=== PATIENT | male | born 1990 | race American Indian/Alaskan Native ===

== ENCOUNTER 2017-11-16 18:51 | Inpatient (IN) | payer OTHER ==
[2017-11-16] MEDS ORDERED: AMIDATE IV ONE (19:04)
[2017-11-16] MEDS ORDERED: ARTIFICIAL TEARS OPHTH OINT OU PRN (19:05)
[2017-11-16] MEDS ORDERED: VASELINE LIP THERAPY TP PRN (19:05)
[2017-11-16] MEDS ORDERED: ATROPINE IV ONE (19:09)
[2017-11-16] MEDS ORDERED: NACL 0.9% 1000 ML 1,000 ML IV ONE (19:14)
[2017-11-16] MEDS ORDERED: VERSED IV ONE (19:15)
--- NOTE | 2017-11-16 19:23 | Emergency Department Report ---
HPI - General Chief Complaint: Overdose Time Seen by Provider: 11/16/17 19:13 - HPI HPI: Patient presented via EMS, unresponsive, with nasal L Way after failed intubation by EMS 1. Apparently patient did unknown amount of illicit drug prior to him becoming unresponsive. Patient was in the front of a truck, then fell outside unresponsive. He was brought via stretcher, spine board. Unable to participate in history and physical. GCS was found to be 4, no focal degenerative intubated for airway protection. Etomidate 20 mg IV 1 given prior to his intubation. ED Past Medical Hx - Past Medical History Additional medical history: unknown - Surgical History Additional Surgical History: unknown - Social History Smoking Status: Unknown if ever smoked ED Review of Systems ROS: Stated complaint: OVERDOSE Other details as noted in HPI Comment: Unobtainable due to pts medical conditions Physical Exam - Physical Exam Vital Signs: Vital Signs 11/16/17 11/16/17 18:56 19:00 Pulse Rate 42 L 53 L Respiratory 9 L 16 Rate Blood Pressure 118/76 127/81 O2 Sat by Pulse 99 87 Oximetry Physical Exam: - Physical Exam - General Limitations: Unresponsive patient General appearance: Not responsive to pain stimuli, verbal stimuli. - Head Head exam: Present: Right frontal head abrasion. Normocephalic - Eye Eye exam: Present: Pinpoint pupils bilaterally - ENT ENT exam: Present: Nasal airway in place - Neck Neck exam: Present: normal inspection, no crepitus - Respiratory Respiratory exam: Present: Decreased breath sound bilaterally,. Having periods of apnea and respiratory rate at best 6-8, course breath sound and lower lobes. - Cardiovascular Cardiovascular Exam: Present: Sinus bradycardia from 36-44. Absent: systolic murmur, diastolic murmur, rubs, gallop - GI/Abdominal GI/Abdominal exam: Present: soft, normal bowel sounds - Extremities Exam Extremities exam: Present: normal inspection - Back Exam Back exam: Present: normal inspection - Neurological Exam Neurological exam: GCS of 4, has abnormal extension - Skin Skin exam: Present: warm, dry, intact, normal color. Absent: rash ED Course Vital Signs 11/16/17 11/16/17 18:56 19:00 Pulse Rate 42 L 53 L Respiratory 9 L 16 Rate Blood Pressure 118/76 127/81 O2 Sat by Pulse 99 87 Oximetry - Reevaluation(s) Reevaluation #1: 11/16/17 23:41 While nurse decrease propranolol due to hypotension, patient self extubated, had coughing spells, and remained stable. Saturation was 100% on nasal cannula , patient was unresponsive to tactile, verbal stimuli therefore he remained extubated on nasal cannula. ED Medical Decision Making - Lab Data Result diagrams: 11/16/17 Unknown 11/16/17 Unknown Critical care attestation.: If time is entered above; I have spent that time in minutes in the direct care of this critically ill patient, excluding procedure time. ED Disposition Clinical Impression: Acute drug overdose Qualifiers: Encounter type: initial encounter Injury intent: undetermined intent Qualified Code(s): T50.904A - Poisoning by unspecified drugs, medicaments and biological substances, undetermined, initial encounter Disposition: DC-09 OP ADMIT IP TO THIS HOSP Is pt being admited?: Yes Condition: Stable
[2017-11-16 19:34] LABS: Basophils % (Auto) 0.1 % (0.0-1.8); Hematocrit 43.5 % (35.5-45.6); Hemoglobin 14.2 gm/dl (11.8-15.2); Lymphocytes # (Auto) 1.3 K/mm3 (1.2-5.4); Lymphocytes % (Auto) 8.9 % (13.4-35.0); Mean Corpuscular HGB Conc 33 % (32-34); Mean Corpuscular Hemoglobin 31 pg (28-32); Mean Corpuscular Volume 93 fl (84-94); Monocytes # (Auto) 0.9 K/mm3 (0.0-0.8); Monocytes % (Auto) 5.8 % (0.0-7.3); Platelet Count 250 K/mm3 (140-440); Red Blood Count 4.65 M/mm3 (3.65-5.03); Red Cell Distribution Width 13.8 % (13.2-15.2)
[2017-11-16 19:53] LABS: Alanine Aminotransferase 258 units/L (7-56); Albumin 4.9 g/dL (3.9-5); BUN/Creatinine Ratio 15; Blood Urea Nitrogen 9 mg/dL (9-20); Hemolysis Index 50
--- NOTE | 2017-11-16 19:56 | XRay Report ---
FINAL REPORT EXAM: XR CHEST 1V AP HISTORY: ETT placement TECHNIQUE: AP portable view of the chest. PRIORS: None. FINDINGS: There is an endotracheal tube in place which appears adequately positioned in the mid trachea. The cardiomediastinal silhouette appears normal. The lungs are clear. The bones and soft tissues are unremarkable. IMPRESSION: No evidence of acute cardiopulmonary disease.
[2017-11-16] MEDS ORDERED: VERSED IV NR (20:00)
[2017-11-16] MEDS ORDERED: NACL 0.9% 500 ML IV SCH (20:00)
[2017-11-16] MEDS ORDERED: DIPRIVAN 10 MG/ML 1,000 MG/100 ML BOTTLE IV SCH (20:00)
[2017-11-16 21:19] LABS: Bilirubin,Urine NEG (Negative); Blood,Urine NEG (Negative); Color,Urine Straw (Yellow); Mucus,Urine FEW /HPF; Urobilinogen,Urine < 2.0 mg/dL (<2.0)
[2017-11-16 21:21] LABS: WBC,Urine < 1.0 /HPF (0.0-6.0)
[2017-11-16 21:27] LABS: Amphetamine Screen,Urine PRESUMPTIVE NEGATIVE; Cannabinoid Screen,Urine PRESUMPTIVE NEGATIVE; Cocaine Screen,Urine PRESUMPTIVE NEGATIVE; Methadone Screen,Urine PRESUMPTIVE NEGATIVE; Opiate Screen,Urine PRESUMPTIVE NEGATIVE
[2017-11-16 21:38] LABS: Benzodiazepines Screen,Urine PRESUMPTIVE POSITIVE
--- NOTE | 2017-11-17 01:04 | Cat Scan Report ---
FINAL REPORT PROCEDURE: CT HEAD/BRAIN WO CON TECHNIQUE: Computerized tomography of the head was performed without contrast material. HISTORY: altered mental status COMPARISON: No prior studies are available for comparison. FINDINGS: Skull and scalp: Normal. Paranasal sinuses: Normal. Ventricles and subarachnoid spaces: Normal. Cerebrum: No evidence of hemorrhage, acute infarction or mass . Cerebellum and brainstem: No evidence of hemorrhage, acute infarction or mass. Vasculature: Normal. Comments: None. IMPRESSION: Normal Examination
--- NOTE | 2017-11-17 01:12 | Cat Scan Report ---
FINAL REPORT PROCEDURE: CT CERVICAL SPINE WO CON TECHNIQUE: Computerized tomography of the cervical spine was performed from the skull base to T1 without contrast material. HISTORY: trama, fall COMPARISON: No prior studies are available for comparison. FINDINGS: Cervical vertebrae are intact. There are no fractures or malalignments. Disc spaces are normal. Facet joints are intact. Prevertebral soft tissues are normal in thickness. IMPRESSION: No significant abnormality.
--- NOTE | 2017-11-17 02:20 | History and Physical Report ---
History of Present Illness Date of examination: 11/16/17 Date of admission: 11/16/17 22:04 Chief complaint: Chief complaint: Altered sensorium History of present illness: HPI Patient presented via EMS, unresponsive, with nasal L Way after failed intubation by EMS 1. Apparently patient did unknown amount of illicit drug prior to him becoming unresponsive. Patient was in the front of a truck, then fell outside unresponsive. He was brought via stretcher, spine board. Unable to participate in history and physical. GCS was found to be 4, no focal degenerative intubated for airway protection. Etomidate 20 mg IV 1 given prior to his intubation. There is a fourth episode of overdose on GHB -Gamma hydroxy butyric acid Past Medical History Additional medical history: unknown -Surgical History Additional Surgical History: unknown -Social History Smoking Status: Unknown if ever smoked Drugs on a regular basis elen G Family history Htn Review of Systems ROS: Stated complaint: OVERDOSE Other details as noted in HPI Comment: Unobtainable due to pts medical conditions Medications and Allergies Allergies Allergy/AdvReac Type Severity Reaction Status Date / Time No Known Allergies Allergy Unverified 11/16/17 19:53 Home Medications Medication Instructions Recorded Confirmed Last Taken Type Mirtazapine [Remeron] 45 mg PO QHS 11/17/17 11/17/17 11/15/17 History Prazosin [Minipress] 5 mg PO QPM 11/17/17 11/17/17 Unknown History Active Meds: Active Medications Hydrophilic Ointment (Vaseline Lip Therapy) 1 applic TP Q2HR PRN PRN Reason: Dry Lips Multi-Ingred Cream/Lotion/Oil/Oint (Artificial Tears Ophth Oint) 1 applic OU Q4HR PRN PRN Reason: Dry Eye(s) Sodium Chloride (Nacl 0.9% 500 Ml) 1 ml IV DIRECT GWEN Exam - Physical Exam Narrative exam: Lying in bed comfortably - Constitutional Vitals: Temp Pulse Resp BP Pulse Ox 98.2 F 82 20 118/71 93 11/17/17 00:26 11/17/17 00:26 11/17/17 00:26 11/17/17 00:26 11/17/17 00:26 General appearance: Present: no acute distress, well-nourished - EENT Eyes: Present: PERRL ENT: hearing intact, clear oral mucosa - Neck Neck: Present: supple, normal ROM - Respiratory Respiratory effort: normal Respiratory: bilateral: CTA - Cardiovascular Heart rate: 80 Rhythm: regular Heart Sounds: Present: S1 & S2. Absent: rub, click - Extremities Extremities: no ischemia, pulses intact, pulses symmetrical, No edema Peripheral Pulses: within normal limits - Abdominal General gastrointestinal: Present: soft, non-tender, non-distended, normal bowel sounds Male genitourinary: Present: normal - Integumentary Integumentary: Present: clear, warm, dry - Musculoskeletal Musculoskeletal: gait normal, strength equal bilaterally - Psychiatric Psychiatric: appropriate mood/affect, intact judgment & insight - Neurologic Neurologic: CNII-XII intact, moves all extremities - Allied Health Allied health notes reviewed: nursing, case management Results - Labs CBC & Chem 7: 11/16/17 Unknown 11/16/17 Unknown Labs: Laboratory Last Values WBC 15.0 K/mm3 (4.5-11.0) H 11/16/17 Unknown RBC 4.65 M/mm3 (3.65-5.03) 11/16/17 Unknown Hgb 14.2 gm/dl (11.8-15.2) 11/16/17 Unknown Hct 43.5 % (35.5-45.6) 11/16/17 Unknown MCV 93 fl (84-94) 11/16/17 Unknown MCH 31 pg (28-32) 11/16/17 Unknown MCHC 33 % (32-34) 11/16/17 Unknown RDW 13.8 % (13.2-15.2) 11/16/17 Unknown Plt Count 250 K/mm3 (140-440) 11/16/17 Unknown Lymph % (Auto) 8.9 % (13.4-35.0) L 11/16/17 Unknown [place] % (Auto) 5.8 % (0.0-7.3) 11/16/17 Unknown Eos % (Auto) 0.0 % (0.0-4.3) 11/16/17 Unknown Baso % (Auto) 0.1 % (0.0-1.8) 11/16/17 Unknown Lymph # 1.3 K/mm3 (1.2-5.4) 11/16/17 Unknown [place] # 0.9 K/mm3 (0.0-0.8) H 11/16/17 Unknown Eos # 0.0 K/mm3 (0.0-0.4) 11/16/17 Unknown Baso # 0.0 K/mm3 (0.0-0.1) 11/16/17 Unknown Seg Neutrophils % 85.2 % (40.0-70.0) H 11/16/17 Unknown Seg Neutrophils # 12.8 K/mm3 (1.8-7.7) H 11/16/17 Unknown POC ABG pH 7.343 (7.35-7.45) L 11/16/17 21:55 POC ABG pCO2 48.1 (35-45) H 11/16/17 21:55 POC ABG pO2 418 (80-105) H 11/16/17 21:55 POC ABG HCO3 26.1 11/16/17 21:55 POC ABG Total CO2 28 11/16/17 21:55 POC ABG O2 Sat 100 11/16/17 21:55 POC ABG Base Excess 0 11/16/17 21:55 FiO2 100 % 11/16/17 21:55 Sodium 144 mmol/L (137-145) 11/16/17 Unknown Potassium 3.7 mmol/L (3.6-5.0) 11/16/17 Unknown Chloride 106.1 mmol/L (98-107) 11/16/17 Unknown Carbon Dioxide 19 mmol/L (22-30) L 11/16/17 Unknown Anion Gap 23 mmol/L 11/16/17 Unknown BUN 9 mg/dL (9-20) 11/16/17 Unknown Creatinine 0.6 mg/dL (0.8-1.5) L 11/16/17 Unknown Estimated GFR > 60 ml/min 11/16/17 Unknown BUN/Creatinine Ratio 15 % 11/16/17 Unknown Glucose 122 mg/dL (75-100) H 11/16/17 Unknown Calcium 9.0 mg/dL (8.4-10.2) 11/16/17 Unknown Total Bilirubin 0.40 mg/dL (0.1-1.2) 11/16/17 Unknown AST 108 units/L (5-40) H 11/16/17 Unknown ALT 258 units/L (7-56) H 11/16/17 Unknown Alkaline Phosphatase 103 units/L (35-129) 11/16/17 Unknown Total Creatine Kinase 432 units/L (55-170) H 11/16/17 20:52 Total Protein 8.1 g/dL (6.3-8.2) 11/16/17 Unknown Albumin 4.9 g/dL (3.9-5) 11/16/17 Unknown Albumin/Globulin Ratio 1.5 % 11/16/17 Unknown TSH 3.610 mlU/mL (0.270-4.200) 11/16/17 Unknown Urine Color Straw (Yellow) 11/16/17 20:49 Urine Turbidity Clear (Clear) 11/16/17 20:49 Urine pH 7.0 (5.0-7.0) 11/16/17 20:49 Ur Specific [place] 1.008 (1.003-1.030) 11/16/17 20:49 Urine Protein 30 mg/dl mg/dL (Negative) 11/16/17 20:49 Urine Glucose (UA) 50 mg/dL (Negative) 11/16/17 20:49 Urine Ketones Neg mg/dL (Negative) 11/16/17 20:49 Urine Blood Neg (Negative) 11/16/17 20:49 Urine Nitrite Neg (Negative) 11/16/17 20:49 Urine Bilirubin Neg (Negative) 11/16/17 20:49 Urine Urobilinogen < 2.0 mg/dL (<2.0) 11/16/17 20:49 Ur Leukocyte Esterase Neg (Negative) 11/16/17 20:49 Urine WBC (Auto) < 1.0 /HPF (0.0-6.0) 11/16/17 20:49 Urine RBC (Auto) 1.0 /HPF (0.0-6.0) 11/16/17 20:49 Urine Mucus Few /HPF 11/16/17 20:49 Salicylates < 0.3 mg/dL (2.8-20.0) L 11/16/17 Unknown Urine Opiates Screen Presumptive negative 11/16/17 20:49 Urine Methadone Screen Presumptive negative 11/16/17 20:49 Acetaminophen < 5.0 ug/mL (10.0-30.0) L 11/16/17 Unknown Ur Barbiturates Screen Presumptive negative 11/16/17 20:49 Ur Phencyclidine Scrn Presumptive negative 11/16/17 20:49 Ur Amphetamines Screen Presumptive negative 11/16/17 20:49 U Benzodiazepines Scrn Presumptive positive 11/16/17 20:49 Urine Cocaine Screen Presumptive negative 11/16/17 20:49 U Marijuana (THC) Screen Presumptive negative 11/16/17 20:49 Drugs of Abuse Note Disclamer 11/16/17 20:49 Plasma/Serum Alcohol < 0.01 % (0-0.07) 11/16/17 Unknown - Imaging and Cardiology Imaging and Cardiology: imaging studies are negative Assessment and Plan Advance Directives: Yes (full code) VTE prophylaxis?: Chemical Plan of care discussed with patient/family: Yes - Patient Problems (1) Acute drug overdose Current Visit: Yes Status: Acute Qualifiers: Encounter type: initial encounter Injury intent: undetermined intent Qualified Code(s): T50.904A - Poisoning by unspecified drugs, medicaments and biological substances, undetermined, initial encounter Plan to address problem: GHB overdose. IV fluids for now. Stable otherwise . Mental health consult (2) DVT prophylaxis Current Visit: Yes Status: Acute Plan to address problem: Heparin
[2017-11-17] MEDS ORDERED: SODIUM CHLORIDE FLUSH SYRINGE 10 ML IV PRN (07:59)
[2017-11-17] MEDS ORDERED: MORPHINE IV PRN (07:59)
[2017-11-17] MEDS ORDERED: ZOFRAN IV PRN (09:00)
[2017-11-17] MEDS ORDERED: TYLENOL PO PRN (09:00)
[2017-11-17] MEDS ORDERED: PERCOCET 5/325 PO PRN (09:00)
--- NOTE | 2017-11-17 09:19 | XRay Report ---
AP CHEST :11/17/17 07:49 CLINICAL: Followup respiratory failure. COMPARISON:11/16/17 FINDINGS: The endotracheal tube has been removed. No tubes or lines. Normal heart and pulmonary vessels. The lungs are normally expanded and clear. The bones and soft tissues are normal. IMPRESSION: Normal chest after extubation.
[2017-11-17] MEDS: NACL 0.9% 1000 ML 1,000 ML IV SCH (09:21)
[2017-11-17] MEDS: PEPCID IV SCH ×2 (09:22→22:08)
--- NOTE | 2017-11-17 12:23 | Progress Note ---
Assessment and Plan Assessment and plan: Acute hypoxemic respiratory failure. Resolved. Patient was intubated due to drug overdose/airway protection. Patient self extubated himself last evening. Follow-up chest x-ray. Continue O2 for supportive care. Acute drug overdose. Continue IV fluid hydration. GHB overdose. 1013 for now. Await mental health evaluation. Acute encephalopathy. Resolved. Etiology secondary to above. CT head and neck are negative. Leukocytosis. Etiology likely stress-induced. ? Aspiration pneumonia, however doubtful chest x-ray negative and patient afebrile. History Interval history: No new issues overnight. Hospitalist Physical - Constitutional Vitals: Temp Pulse Resp BP Pulse Ox 98.8 F 74 20 128/58 97 11/17/17 08:32 11/17/17 08:32 11/17/17 08:32 11/17/17 08:32 11/17/17 08:32 General appearance: Present: no acute distress, well-nourished - EENT Eyes: Present: PERRL, EOM intact ENT: hearing intact, clear oral mucosa, dentition normal - Neck Neck: Present: supple, normal ROM - Respiratory Respiratory effort: normal Respiratory: bilateral: CTA - Cardiovascular Rhythm: regular Heart Sounds: Present: S1 & S2. Absent: gallop, rub - Extremities Extremities: no ischemia, No edema, Full ROM - Abdominal General gastrointestinal: soft, non-tender, non-distended, normal bowel sounds - Integumentary Integumentary: Present: clear, warm, dry - Neurologic Neurologic: CNII-XII intact, moves all extremities Results - Labs CBC & Chem 7: 11/16/17 Unknown 11/16/17 Unknown Labs: Laboratory Last Values WBC 15.0 K/mm3 (4.5-11.0) H 11/16/17 Unknown RBC 4.65 M/mm3 (3.65-5.03) 11/16/17 Unknown Hgb 14.2 gm/dl (11.8-15.2) 11/16/17 Unknown Hct 43.5 % (35.5-45.6) 11/16/17 Unknown MCV 93 fl (84-94) 11/16/17 Unknown MCH 31 pg (28-32) 11/16/17 Unknown MCHC 33 % (32-34) 11/16/17 Unknown RDW 13.8 % (13.2-15.2) 11/16/17 Unknown Plt Count 250 K/mm3 (140-440) 11/16/17 Unknown Lymph % (Auto) 8.9 % (13.4-35.0) L 11/16/17 Unknown [place] % (Auto) 5.8 % (0.0-7.3) 11/16/17 Unknown Eos % (Auto) 0.0 % (0.0-4.3) 11/16/17 Unknown Baso % (Auto) 0.1 % (0.0-1.8) 11/16/17 Unknown Lymph # 1.3 K/mm3 (1.2-5.4) 11/16/17 Unknown [place] # 0.9 K/mm3 (0.0-0.8) H 11/16/17 Unknown Eos # 0.0 K/mm3 (0.0-0.4) 11/16/17 Unknown Baso # 0.0 K/mm3 (0.0-0.1) 11/16/17 Unknown Seg Neutrophils % 85.2 % (40.0-70.0) H 11/16/17 Unknown Seg Neutrophils # 12.8 K/mm3 (1.8-7.7) H 11/16/17 Unknown POC ABG pH 7.343 (7.35-7.45) L 11/16/17 21:55 POC ABG pCO2 48.1 (35-45) H 11/16/17 21:55 POC ABG pO2 418 (80-105) H 11/16/17 21:55 POC ABG HCO3 26.1 11/16/17 21:55 POC ABG Total CO2 28 11/16/17 21:55 POC ABG O2 Sat 100 11/16/17 21:55 POC ABG Base Excess 0 11/16/17 21:55 FiO2 100 % 11/16/17 21:55 Sodium 144 mmol/L (137-145) 11/16/17 Unknown Potassium 3.7 mmol/L (3.6-5.0) 11/16/17 Unknown Chloride 106.1 mmol/L (98-107) 11/16/17 Unknown Carbon Dioxide 19 mmol/L (22-30) L 11/16/17 Unknown Anion Gap 23 mmol/L 11/16/17 Unknown BUN 9 mg/dL (9-20) 11/16/17 Unknown Creatinine 0.6 mg/dL (0.8-1.5) L 11/16/17 Unknown Estimated GFR > 60 ml/min 11/16/17 Unknown BUN/Creatinine Ratio 15 % 11/16/17 Unknown Glucose 122 mg/dL (75-100) H 11/16/17 Unknown Calcium 9.0 mg/dL (8.4-10.2) 11/16/17 Unknown Total Bilirubin 0.40 mg/dL (0.1-1.2) 11/16/17 Unknown AST 108 units/L (5-40) H 11/16/17 Unknown ALT 258 units/L (7-56) H 11/16/17 Unknown Alkaline Phosphatase 103 units/L (35-129) 11/16/17 Unknown Total Creatine Kinase 432 units/L (55-170) H 11/16/17 20:52 Total Protein 8.1 g/dL (6.3-8.2) 11/16/17 Unknown Albumin 4.9 g/dL (3.9-5) 11/16/17 Unknown Albumin/Globulin Ratio 1.5 % 11/16/17 Unknown TSH 3.610 mlU/mL (0.270-4.200) 11/16/17 Unknown Urine Color Straw (Yellow) 11/16/17 20:49 Urine Turbidity Clear (Clear) 11/16/17 20:49 Urine pH 7.0 (5.0-7.0) 11/16/17 20:49 Ur Specific [place] 1.008 (1.003-1.030) 11/16/17 20:49 Urine Protein 30 mg/dl mg/dL (Negative) 11/16/17 20:49 Urine Glucose (UA) 50 mg/dL (Negative) 11/16/17 20:49 Urine Ketones Neg mg/dL (Negative) 11/16/17 20:49 Urine Blood Neg (Negative) 11/16/17 20:49 Urine Nitrite Neg (Negative) 11/16/17 20:49 Urine Bilirubin Neg (Negative) 11/16/17 20:49 Urine Urobilinogen < 2.0 mg/dL (<2.0) 11/16/17 20:49 Ur Leukocyte Esterase Neg (Negative) 11/16/17 20:49 Urine WBC (Auto) < 1.0 /HPF (0.0-6.0) 11/16/17 20:49 Urine RBC (Auto) 1.0 /HPF (0.0-6.0) 11/16/17 20:49 Urine Mucus Few /HPF 11/16/17 20:49 Salicylates < 0.3 mg/dL (2.8-20.0) L 11/16/17 Unknown Urine Opiates Screen Presumptive negative 11/16/17 20:49 Urine Methadone Screen Presumptive negative 11/16/17 20:49 Acetaminophen < 5.0 ug/mL (10.0-30.0) L 11/16/17 Unknown Ur Barbiturates Screen Presumptive negative 11/16/17 20:49 Ur Phencyclidine Scrn Presumptive negative 11/16/17 20:49 Ur Amphetamines Screen Presumptive negative 11/16/17 20:49 U Benzodiazepines Scrn Presumptive positive 11/16/17 20:49 Urine Cocaine Screen Presumptive negative 11/16/17 20:49 U Marijuana (THC) Screen Presumptive negative 11/16/17 20:49 Drugs of Abuse Note Disclamer 11/16/17 20:49 Plasma/Serum Alcohol < 0.01 % (0-0.07) 11/16/17 Unknown
[2017-11-17] MEDS ORDERED: ATROPINE 0.1% (CARDIAC) ONE (15:48)
[2017-11-17] MEDS ORDERED: AMIDATE IV ONE (15:48)
[2017-11-17] MEDS ORDERED: VERSED IV ONE (15:48)
[2017-11-17] MEDS: SODIUM CHLORIDE FLUSH SYRINGE 10 ML IV SCH ×2 (22:08→22:09)
[2017-11-18] MEDS: NACL 0.9% 1000 ML 1,000 ML IV SCH ×3 (01:12→18:30)
[2017-11-18 06:12] LABS: Basophils % (Auto) 0.3 % (0.0-1.8); Eosinophils # (Auto) 0.1 K/mm3 (0.0-0.4); Eosinophils % (Auto) 1.4 % (0.0-4.3); Hematocrit 38.1 % (35.5-45.6); Hemoglobin 12.7 gm/dl (11.8-15.2); Lymphocytes # (Auto) 2.3 K/mm3 (1.2-5.4); Lymphocytes % (Auto) 27.8 % (13.4-35.0); Mean Corpuscular HGB Conc 33 % (32-34); Mean Corpuscular Hemoglobin 31 pg (28-32); Mean Corpuscular Volume 92 fl (84-94); Monocytes % (Auto) 11.7 % (0.0-7.3); Platelet Count 204 K/mm3 (140-440); Red Blood Count 4.14 M/mm3 (3.65-5.03); Red Cell Distribution Width 13.9 % (13.2-15.2)
[2017-11-18 06:40] LABS: BUN/Creatinine Ratio 14; Blood Urea Nitrogen 10 mg/dL (9-20); Calcium 8.7 mg/dL (8.4-10.2); Hemolysis Index 5
[2017-11-18] MEDS: PEPCID IV SCH ×2 (09:10→22:50)
[2017-11-18] MEDS: SODIUM CHLORIDE FLUSH SYRINGE 10 ML IV SCH ×2 (09:31→22:55)
--- NOTE | 2017-11-18 09:32 | XRay Report ---
AP CHEST :11/18/17 CLINICAL: Followup respiratory failure. COMPARISON:11/17/17 FINDINGS: The lungs are normally expanded and clear.No tubes or lines. Normal heart and pulmonary vessels. IMPRESSION: Normal chest.
--- NOTE | 2017-11-18 11:22 | Progress Note ---
Assessment and Plan Assessment and plan: Acute hypoxemic respiratory failure. Resolved. Patient was intubated due to drug overdose/airway protection. Patient self extubated himself and continues to do well. Continue O2 for supportive care. Acute drug overdose. Continue IV fluid hydration. GHB overdose. 1013 for now. Mental health joint cutter recommends inpatient for detox, depression and drug overdose. Acute encephalopathy. Resolved. Etiology secondary to above. CT head and neck are negative. Leukocytosis. Resolved. Etiology likely stress-induced. ? Aspiration pneumonia, however doubtful chest x-ray negative and patient afebrile. History Interval history: No new issues overnight. Hospitalist Physical - Constitutional Vitals: Temp Pulse Resp BP Pulse Ox 98.2 F 65 18 114/65 95 11/18/17 07:53 11/18/17 07:53 11/18/17 07:53 11/18/17 07:53 11/18/17 07:53 General appearance: Present: no acute distress, well-nourished - EENT Eyes: Present: PERRL, EOM intact ENT: hearing intact, clear oral mucosa, dentition normal - Neck Neck: Present: supple, normal ROM - Respiratory Respiratory effort: normal Respiratory: bilateral: CTA - Cardiovascular Rhythm: regular Heart Sounds: Present: S1 & S2. Absent: gallop, rub - Extremities Extremities: no ischemia, No edema, Full ROM - Abdominal General gastrointestinal: soft, non-tender, non-distended, normal bowel sounds - Integumentary Integumentary: Present: clear, warm, dry - Neurologic Neurologic: CNII-XII intact, moves all extremities Results - Labs CBC & Chem 7: 11/18/17 05:42 11/18/17 05:42 Labs: Laboratory Last Values WBC 8.2 K/mm3 (4.5-11.0) 11/18/17 05:42 RBC 4.14 M/mm3 (3.65-5.03) 11/18/17 05:42 Hgb 12.7 gm/dl (11.8-15.2) 11/18/17 05:42 Hct 38.1 % (35.5-45.6) 11/18/17 05:42 MCV 92 fl (84-94) 11/18/17 05:42 MCH 31 pg (28-32) 11/18/17 05:42 MCHC 33 % (32-34) 11/18/17 05:42 RDW 13.9 % (13.2-15.2) 11/18/17 05:42 Plt Count 204 K/mm3 (140-440) 11/18/17 05:42 Lymph % (Auto) 27.8 % (13.4-35.0) 11/18/17 05:42 [place] % (Auto) 11.7 % (0.0-7.3) H 11/18/17 05:42 Eos % (Auto) 1.4 % (0.0-4.3) 11/18/17 05:42 Baso % (Auto) 0.3 % (0.0-1.8) 11/18/17 05:42 Lymph # 2.3 K/mm3 (1.2-5.4) 11/18/17 05:42 [place] # 1.0 K/mm3 (0.0-0.8) H 11/18/17 05:42 Eos # 0.1 K/mm3 (0.0-0.4) 11/18/17 05:42 Baso # 0.0 K/mm3 (0.0-0.1) 11/18/17 05:42 Seg Neutrophils % 58.8 % (40.0-70.0) 11/18/17 05:42 Seg Neutrophils # 4.8 K/mm3 (1.8-7.7) 11/18/17 05:42 POC ABG pH 7.343 (7.35-7.45) L 11/16/17 21:55 POC ABG pCO2 48.1 (35-45) H 11/16/17 21:55 POC ABG pO2 418 (80-105) H 11/16/17 21:55 POC ABG HCO3 26.1 11/16/17 21:55 POC ABG Total CO2 28 11/16/17 21:55 POC ABG O2 Sat 100 11/16/17 21:55 POC ABG Base Excess 0 11/16/17 21:55 FiO2 100 % 11/16/17 21:55 Sodium 142 mmol/L (137-145) 11/18/17 05:42 Potassium 3.9 mmol/L (3.6-5.0) 11/18/17 05:42 Chloride 106.5 mmol/L (98-107) 11/18/17 05:42 Carbon Dioxide 26 mmol/L (22-30) D 11/18/17 05:42 Anion Gap 13 mmol/L 11/18/17 05:42 BUN 10 mg/dL (9-20) 11/18/17 05:42 Creatinine 0.7 mg/dL (0.8-1.5) L 11/18/17 05:42 Estimated GFR > 60 ml/min 11/18/17 05:42 BUN/Creatinine Ratio 14 % 11/18/17 05:42 Glucose 88 mg/dL (75-100) 11/18/17 05:42 Calcium 8.7 mg/dL (8.4-10.2) 11/18/17 05:42 Total Bilirubin 0.40 mg/dL (0.1-1.2) 11/16/17 Unknown AST 108 units/L (5-40) H 11/16/17 Unknown ALT 258 units/L (7-56) H 11/16/17 Unknown Alkaline Phosphatase 103 units/L (35-129) 11/16/17 Unknown Total Creatine Kinase 432 units/L (55-170) H 11/16/17 20:52 Total Protein 8.1 g/dL (6.3-8.2) 11/16/17 Unknown Albumin 4.9 g/dL (3.9-5) 11/16/17 Unknown Albumin/Globulin Ratio 1.5 % 11/16/17 Unknown TSH 3.610 mlU/mL (0.270-4.200) 11/16/17 Unknown Urine Color Straw (Yellow) 11/16/17 20:49 Urine Turbidity Clear (Clear) 11/16/17 20:49 Urine pH 7.0 (5.0-7.0) 11/16/17 20:49 Ur Specific [place] 1.008 (1.003-1.030) 11/16/17 20:49 Urine Protein 30 mg/dl mg/dL (Negative) 11/16/17 20:49 Urine Glucose (UA) 50 mg/dL (Negative) 11/16/17 20:49 Urine Ketones Neg mg/dL (Negative) 11/16/17 20:49 Urine Blood Neg (Negative) 11/16/17 20:49 Urine Nitrite Neg (Negative) 11/16/17 20:49 Urine Bilirubin Neg (Negative) 11/16/17 20:49 Urine Urobilinogen < 2.0 mg/dL (<2.0) 11/16/17 20:49 Ur Leukocyte Esterase Neg (Negative) 11/16/17 20:49 Urine WBC (Auto) < 1.0 /HPF (0.0-6.0) 11/16/17 20:49 Urine RBC (Auto) 1.0 /HPF (0.0-6.0) 11/16/17 20:49 Urine Mucus Few /HPF 11/16/17 20:49 Salicylates < 0.3 mg/dL (2.8-20.0) L 11/16/17 Unknown Urine Opiates Screen Presumptive negative 11/16/17 20:49 Urine Methadone Screen Presumptive negative 11/16/17 20:49 Acetaminophen < 5.0 ug/mL (10.0-30.0) L 11/16/17 Unknown Ur Barbiturates Screen Presumptive negative 11/16/17 20:49 Ur Phencyclidine Scrn Presumptive negative 11/16/17 20:49 Ur Amphetamines Screen Presumptive negative 11/16/17 20:49 U Benzodiazepines Scrn Presumptive positive 11/16/17 20:49 Urine Cocaine Screen Presumptive negative 11/16/17 20:49 U Marijuana (THC) Screen Presumptive negative 11/16/17 20:49 Drugs of Abuse Note Disclamer 11/16/17 20:49 Plasma/Serum Alcohol < 0.01 % (0-0.07) 11/16/17 Unknown
--- NOTE | 2017-11-18 18:33 | Consultation ---
History of Present Illness - Reason for Consult Consult date: 11/18/17 Reason for consult: psychiatric evaluation - Chief Complaint Chief complaint: "Are you the person who can help me get out of here." - History of Present Psychiatric Illness Patient presented via EMS, unresponsive and was determined to have overdosed. He was seen today on the medical floor. He extubated himself last night. Per the record he told someone to call an ambulance if he overdosed. He reports overdosing on GHB. He states he took 3.5mL but nothing happened after 3 hours and then took 2 more mL. His UDS is positive for benzos, which he denies using. He reports being released from detention 11/15/2017. He has to report to his police patrol officer in the morning. He was in detention for 9 months. He has a history of daily GHB IV use prior to incarceration. He has a history of using and dealing illicit substance use, to include methamphetamine and heroin. He reports being diagnosed with "PTSD, anxiety,and depression" and is usually on remeron 30mg hs and prazosin 8mg hs. He denies intentionally trying to harm himself. He acknowledges poor judgment. He denies suicidal or homicidal ideation. He denies manic or psychotic symptoms. His goal is to remain free. Medications and Allergies Allergies Allergy/AdvReac Type Severity Reaction Status Date / Time No Known Allergies Allergy Unverified 11/16/17 19:53 Home Medications Medication Instructions Recorded Confirmed Last Taken Type Mirtazapine [Remeron] 45 mg PO QHS 11/17/17 11/17/17 11/15/17 History Prazosin [Minipress] 5 mg PO QPM 11/17/17 11/17/17 Unknown History Active Meds: Active Medications Acetaminophen (Tylenol) 650 mg PO Q4H PRN PRN Reason: Pain MILD(1-3)/Fever >100.5/[place] Famotidine (Pepcid) 20 mg IV BID [facility] Last Admin: 11/18/17 09:10 Dose: 20 mg Hydrophilic Ointment (Vaseline Lip Therapy) 1 applic TP Q2HR PRN PRN Reason: Dry Lips Sodium Chloride (Nacl 0.9% 1000 Ml) 1,000 mls @ 125 mls/hr IV DIRECT [facility] Last Admin: 11/18/17 09:31 Dose: 125 mls/hr Mirtazapine (Remeron) 15 mg PO QHS [facility] Morphine Sulfate (Morphine) 4 mg IV Q4H PRN PRN Reason: Pain , Severe (7-10) Multi-Ingred Cream/Lotion/Oil/Oint (Artificial Tears Ophth Oint) 1 applic OU Q4HR PRN PRN Reason: Dry Eye(s) Ondansetron HCl (Zofran) 4 mg IV Q8H PRN PRN Reason: Nausea And Vomiting Oxycodone/Acetaminophen (Percocet 5/325) 1 tab PO Q6H PRN PRN Reason: Pain, Moderate (4-6) Sodium Chloride (Nacl 0.9% 500 Ml) 1 ml IV DIRECT GWEN Sodium Chloride (Sodium Chloride Flush Syringe 10 Ml) 10 ml IV BID [facility] Last Admin: 11/18/17 09:31 Dose: 10 ml Sodium Chloride (Sodium Chloride Flush Syringe 10 Ml) 10 ml IV PRN PRN PRN Reason: LINE FLUSH Past psychiatric history - Past Medical History Past Medical History: other - past Psychiatric treatment and history Psych: Anxiety, Addictions, Depression psychiatric treatment history: PTSD and depression most recent medications: remeron 30mg hs prazosin 8mg hs previously on effexor - Social History Social history: IV drug use, other (has children. is on parole) Mental Status Exam - Vital signs Last Vital Signs Temp 98.2 F 11/18/17 07:53 Pulse 58 L 11/18/17 10:00 Resp 18 11/18/17 10:00 BP 114/65 11/18/17 07:53 Pulse Ox 99 11/18/17 10:00 - Exam Narrative exam: full torso tatoo Orientation: time, place, person Affect: agitated Mood: congruent with affect Thought content: other (no suicidal or homicidal ideation) Thought Process: Intact Perceptions: none Speech: normal rate and pattern Concentration: focused Motor activity: normal Level of consciousness: alert Memory: Intact Sleep Symptoms: Difficulty Falling Asleep Appetite: decreased Interaction: cooperative Results Result Diagrams: 11/18/17 05:42 11/18/17 05:42 Abnormal lab results 11/18/17 11/18/17 Range/Units 05:42 05:42 [place] % (Auto) 11.7 H (0.0-7.3) % [place] # 1.0 H (0.0-0.8) K/mm3 Creatinine 0.7 L (0.8-1.5) mg/dL All other labs normal. Assessment and Plan Assessment and plan: Impression: overdose. It is unclear if this was intentional or unintentional. history of PTSD and MDD Recommendation: continue 1013 and continue to evaluate risk for self harm. Start remeron 15mg hs for sleep/depression. He was informed potential side effects.
[2017-11-18] MEDS: REMERON PO SCH (22:50)
--- NOTE | 2017-11-19 09:19 | XRay Report ---
AP CHEST: HISTORY: Follow up respiratory failure AP view of the chest demonstrates a normal mediastinal and cardiac contour with clear lungs and normal bony and soft tissue structures. IMPRESSION: Unremarkable AP chest. No change since 11/18/17.
[2017-11-19] MEDS: PEPCID IV SCH (09:44)
[2017-11-19] MEDS: SODIUM CHLORIDE FLUSH SYRINGE 10 ML IV SCH ×2 (09:44→22:08)
--- NOTE | 2017-11-19 10:53 | Progress Note ---
Subjective - Reason for Consult Consult date: 11/19/17 Reason for consult: Psychiatry Follow-up - Chief Complaint Chief complaint: "I didn't try to kill myself" Patient presented via EMS, unresponsive and was determined to have overdosed. He was seen today on the medical floor. He extubated himself last night. Per the record he told someone to call an ambulance if he overdosed. He reports overdosing on GHB. He states he took 3.5mL but nothing happened after 3 hours and then took 2 more mL. Today the patient is calm and cooperative during the assessment. He stated that he was only trying to get high on GHB once released from shelter. He stated that he unintentionally took to much GHB and became unresponsive. He stated a prior overdose on GHB in the past on GHB, but denies ever wanting to kill himself. He denies a past suicide attempt. He stated having a substance abuse "problem" since the of his father at the age of [age] years old. He stated that his life went "down hill" after the of his father. He denies depression, but would not confirm or deny PTSD when asked. He stated that he slept "pretty good" last night. He denies SI/HI's and AVH's. He denies any side effects of his medications. Mental Status Exam - Vital signs Last Vital Signs Temp 98.1 F 11/19/17 04:42 Pulse 55 L 11/19/17 08:45 Resp 16 11/19/17 04:42 BP 129/47 11/19/17 04:42 Pulse Ox 93 11/19/17 04:42 - Exam Narrative exam: MSE: Appearance: calm, cooperative Behavior: regular eye contact Speech: regular rate and tone Mood: "okay" Affect: congruent to mood Thought Process: linear Thought Content: denies SI/HI's and AVH's Motor Activity: sitting up in bed Cognition: A/O x3 Insight: fair Judgment: fair Assessment and Plan Impression: Hx of PTSD and MDD. Substance Use DO. Overdose on GHB. Today the patient is calm and cooperative during the assessment. Recommendation/Plan: Continue 1013 and gather collateral information to determine proper treatment and dispo. Continue Remeron 15 mg PO for depression/ sleep consolidation. Discussed possible suicidality/medication induced raul with patient reference Remeron. Discussed the importance to abstain from recreational drug use.
--- NOTE | 2017-11-19 11:22 | Progress Note ---
Assessment and Plan Assessment and plan: Acute hypoxemic respiratory failure. Resolved. Patient was intubated due to drug overdose/airway protection. Patient self extubated himself and continues to do well. Continue O2 for supportive care. Acute drug overdose. Continue IV fluid hydration. GHB overdose. 1013 for now. Mental health maintenance shop technician recommends inpatient for detox, depression and drug overdose. Acute encephalopathy. Resolved. Etiology secondary to above. CT head and neck are negative. Leukocytosis. Resolved. Etiology likely stress-induced. ? Aspiration pneumonia, however doubtful chest x-ray negative and patient afebrile. History Interval history: No new issues overnight. Hospitalist Physical - Constitutional Vitals: Temp Pulse Resp BP Pulse Ox 98.1 F 55 L 16 129/47 93 11/19/17 04:42 11/19/17 08:45 11/19/17 04:42 11/19/17 04:42 11/19/17 04:42 General appearance: Present: no acute distress, well-nourished - EENT Eyes: Present: PERRL, EOM intact ENT: hearing intact, clear oral mucosa, dentition normal - Neck Neck: Present: supple, normal ROM - Respiratory Respiratory effort: normal Respiratory: bilateral: CTA - Cardiovascular Rhythm: regular Heart Sounds: Present: S1 & S2. Absent: gallop, rub - Extremities Extremities: no ischemia, No edema, Full ROM - Abdominal General gastrointestinal: soft, non-tender, non-distended, normal bowel sounds - Integumentary Integumentary: Present: clear, warm, dry - Neurologic Neurologic: CNII-XII intact, moves all extremities Results - Labs CBC & Chem 7: 11/18/17 05:42 11/18/17 05:42 Labs: Laboratory Last Values WBC 8.2 K/mm3 (4.5-11.0) 11/18/17 05:42 RBC 4.14 M/mm3 (3.65-5.03) 11/18/17 05:42 Hgb 12.7 gm/dl (11.8-15.2) 11/18/17 05:42 Hct 38.1 % (35.5-45.6) 11/18/17 05:42 MCV 92 fl (84-94) 11/18/17 05:42 MCH 31 pg (28-32) 11/18/17 05:42 MCHC 33 % (32-34) 11/18/17 05:42 RDW 13.9 % (13.2-15.2) 11/18/17 05:42 Plt Count 204 K/mm3 (140-440) 11/18/17 05:42 Lymph % (Auto) 27.8 % (13.4-35.0) 11/18/17 05:42 [place] % (Auto) 11.7 % (0.0-7.3) H 11/18/17 05:42 Eos % (Auto) 1.4 % (0.0-4.3) 11/18/17 05:42 Baso % (Auto) 0.3 % (0.0-1.8) 11/18/17 05:42 Lymph # 2.3 K/mm3 (1.2-5.4) 11/18/17 05:42 [place] # 1.0 K/mm3 (0.0-0.8) H 11/18/17 05:42 Eos # 0.1 K/mm3 (0.0-0.4) 11/18/17 05:42 Baso # 0.0 K/mm3 (0.0-0.1) 11/18/17 05:42 Seg Neutrophils % 58.8 % (40.0-70.0) 11/18/17 05:42 Seg Neutrophils # 4.8 K/mm3 (1.8-7.7) 11/18/17 05:42 POC ABG pH 7.343 (7.35-7.45) L 11/16/17 21:55 POC ABG pCO2 48.1 (35-45) H 11/16/17 21:55 POC ABG pO2 418 (80-105) H 11/16/17 21:55 POC ABG HCO3 26.1 11/16/17 21:55 POC ABG Total CO2 28 11/16/17 21:55 POC ABG O2 Sat 100 11/16/17 21:55 POC ABG Base Excess 0 11/16/17 21:55 FiO2 100 % 11/16/17 21:55 Sodium 142 mmol/L (137-145) 11/18/17 05:42 Potassium 3.9 mmol/L (3.6-5.0) 11/18/17 05:42 Chloride 106.5 mmol/L (98-107) 11/18/17 05:42 Carbon Dioxide 26 mmol/L (22-30) D 11/18/17 05:42 Anion Gap 13 mmol/L 11/18/17 05:42 BUN 10 mg/dL (9-20) 11/18/17 05:42 Creatinine 0.7 mg/dL (0.8-1.5) L 11/18/17 05:42 Estimated GFR > 60 ml/min 11/18/17 05:42 BUN/Creatinine Ratio 14 % 11/18/17 05:42 Glucose 88 mg/dL (75-100) 11/18/17 05:42 Calcium 8.7 mg/dL (8.4-10.2) 11/18/17 05:42 Total Bilirubin 0.40 mg/dL (0.1-1.2) 11/16/17 Unknown AST 108 units/L (5-40) H 11/16/17 Unknown ALT 258 units/L (7-56) H 11/16/17 Unknown Alkaline Phosphatase 103 units/L (35-129) 11/16/17 Unknown Total Creatine Kinase 432 units/L (55-170) H 11/16/17 20:52 Total Protein 8.1 g/dL (6.3-8.2) 11/16/17 Unknown Albumin 4.9 g/dL (3.9-5) 11/16/17 Unknown Albumin/Globulin Ratio 1.5 % 11/16/17 Unknown TSH 3.610 mlU/mL (0.270-4.200) 11/16/17 Unknown Urine Color Straw (Yellow) 11/16/17 20:49 Urine Turbidity Clear (Clear) 11/16/17 20:49 Urine pH 7.0 (5.0-7.0) 11/16/17 20:49 Ur Specific [place] 1.008 (1.003-1.030) 11/16/17 20:49 Urine Protein 30 mg/dl mg/dL (Negative) 11/16/17 20:49 Urine Glucose (UA) 50 mg/dL (Negative) 11/16/17 20:49 Urine Ketones Neg mg/dL (Negative) 11/16/17 20:49 Urine Blood Neg (Negative) 11/16/17 20:49 Urine Nitrite Neg (Negative) 11/16/17 20:49 Urine Bilirubin Neg (Negative) 11/16/17 20:49 Urine Urobilinogen < 2.0 mg/dL (<2.0) 11/16/17 20:49 Ur Leukocyte Esterase Neg (Negative) 11/16/17 20:49 Urine WBC (Auto) < 1.0 /HPF (0.0-6.0) 11/16/17 20:49 Urine RBC (Auto) 1.0 /HPF (0.0-6.0) 11/16/17 20:49 Urine Mucus Few /HPF 11/16/17 20:49 Salicylates < 0.3 mg/dL (2.8-20.0) L 11/16/17 Unknown Urine Opiates Screen Presumptive negative 11/16/17 20:49 Urine Methadone Screen Presumptive negative 11/16/17 20:49 Acetaminophen < 5.0 ug/mL (10.0-30.0) L 11/16/17 Unknown Ur Barbiturates Screen Presumptive negative 11/16/17 20:49 Ur Phencyclidine Scrn Presumptive negative 11/16/17 20:49 Ur Amphetamines Screen Presumptive negative 11/16/17 20:49 U Benzodiazepines Scrn Presumptive positive 11/16/17 20:49 Urine Cocaine Screen Presumptive negative 11/16/17 20:49 U Marijuana (THC) Screen Presumptive negative 11/16/17 20:49 Drugs of Abuse Note Disclamer 11/16/17 20:49 Plasma/Serum Alcohol < 0.01 % (0-0.07) 11/16/17 Unknown
[2017-11-19] MEDS: REMERON PO SCH (22:07)
[2017-11-19] MEDS: PEPCID PO SCH (22:07)
[2017-11-20 08:43] VITALS: BP 138/79
--- NOTE | 2017-11-20 09:35 | XRay Report ---
AP CHEST: HISTORY: Followup respiratory failure AP view of the chest demonstrates a normal mediastinal and cardiac contour with clear lungs and normal bony and soft tissue structures. IMPRESSION: Unremarkable AP chest. No change since 11/19/17.
[2017-11-20] MEDS: PEPCID PO SCH ×2 (10:31→10:44)
[2017-11-20] MEDS: SODIUM CHLORIDE FLUSH SYRINGE 10 ML IV SCH (10:32)
--- NOTE | 2017-11-20 11:48 | Discharge Summary ---
Providers - Providers Date of Admission: 11/16/17 22:04 Date of discharge: 11/20/17 Attending physician: AVANI LINARES 11/16/17 19:05 Consult to Dietitian/Nutrition [CONS] Routine Physician Instructions: Reason For Exam: Reason for Consult: Poor oral intake 11/17/17 10:15 Consult to Mental Health [CONS] Routine Reason For Exam: drug od Place consult to:: psych Notified:: nurse Phone number called:: [phone] Was contact made?: Yes If yes, spoke with:: Francisco Time called:: 10:15 Primary care physician: HORTENSIA MOYER Hospitalization Reason for admission: ams Condition: Stable Hospital course: This is a 27-year-old male with no significant past medical history who presented through the emergency department with altered mentation. Patient was found to be unresponsive and brought in via EMS after a failed intubation 1. On admission, GCS was found to be 4 but no focal findings. Patient was intubated for airway protection. The patient later became more responsive and self extubated himself. The patient's acute respiratory failure resolved and subsequent chest x-rays did not reveal any evidence of pneumonia/aspiration pneumonitis. The patient's urine drug screen was positive for benzodiazepines. The patient was seen by mental health. The patient was noted to have overdosed with GHB and was placed on 1013. He reports being released from [facility] 11/15/2017. He has a history of using and dealing illicit substance use, to include methamphetamine and heroin. He reports being diagnosed with "PTSD, anxiety,and depression". He denies suicidal or homicidal ideation. He denies manic or psychotic symptoms per psychiatry evaluation. Psychiatry has now rescinded the 1013 and recommends Remeron 50 mg at bedtime. Dedicated discharge time 32 minutes. Disposition: -01 TO HOME OR SELFCARE Time spent for discharge: 32 - Discharge Diagnoses (1) Acute drug overdose Status: Acute Qualifiers: Encounter type: initial encounter Injury intent: undetermined intent Qualified Code(s): T50.904A - Poisoning by unspecified drugs, medicaments and biological substances, undetermined, initial encounter (2) DVT prophylaxis Status: Acute Core Measure Documentation - Palliative Care Palliative Care/ Comfort Measures: Not Applicable - Core Measures Any of the following diagnoses?: none Exam - Constitutional Vitals: Temp Pulse Resp BP Pulse Ox 97.7 F 60 18 138/79 99 11/20/17 08:04 11/20/17 10:00 11/20/17 10:00 11/20/17 08:04 11/20/17 08:04 General appearance: Present: no acute distress, well-nourished - EENT Eyes: Present: PERRL ENT: hearing intact, clear oral mucosa - Neck Neck: Present: supple, normal ROM - Respiratory Respiratory effort: normal Respiratory: bilateral: CTA - Cardiovascular Heart Sounds: Present: S1 & S2. Absent: rub, click - Extremities Extremities: pulses symmetrical, No edema Peripheral Pulses: within normal limits - Abdominal General gastrointestinal: Present: soft, non-tender, non-distended, normal bowel sounds Male genitourinary: Present: normal - Integumentary Integumentary: Present: clear, warm, dry - Musculoskeletal Musculoskeletal: gait normal, strength equal bilaterally - Psychiatric Psychiatric: appropriate mood/affect, intact judgment & insight - Neurologic Neurologic: CNII-XII intact, moves all extremities Plan Activity: no restrictions Weight Bearing Status: Full Weight Bearing Diet: regular Follow up with: HORTENSIA MOYER MD [Primary Care Provider] - 3-5 Days Forms: AMA Form Prescriptions: Mirtazapine [Remeron] 15 mg PO QHS #30 tablet
[2017-11-20] MEDS ORDERED: MORPHINE IV PRN ×2 (11:59→13:00)
--- NOTE | 2017-11-20 13:03 | Progress Note ---
Subjective - Reason for Consult Consult date: 11/20/17 Reason for consult: Psychiatry Follow-up - Chief Complaint Chief complaint: "I want to stay clean" Patient presented via EMS, unresponsive and was determined to have overdosed. He was seen today on the medical floor. He extubated himself last night. Per the record he told someone to call an ambulance if he overdosed. He reports overdosing on GHB. He states he took 3.5mL but nothing happened after 3 hours and then took 2 more mL. Today the patient is calm and cooperative during the assessment. Per collateral information from his mother Denise Myers at , she stated that her son was not trying to kill himself when he overdosed on GHB. She stated that her son has a hx of substance abuse. She stated that that he would benefit from rehab services when discharged. She denies any prior suicide attempts by the patient in the past. The patient stated that he is willing to use resources at [facility] for outpatient psy services. He denies SI/HI's, depression, and AVH's. Mental Status Exam - Vital signs Last Vital Signs Temp 97.7 F 11/20/17 08:04 Pulse 60 11/20/17 10:00 Resp 18 11/20/17 10:00 BP 138/79 11/20/17 08:04 Pulse Ox 99 11/20/17 08:04 - Exam Narrative exam: MSE: Appearance: calm, cooperative Behavior: regular eye contact Speech: regular rate and tone Mood: "okay" Affect: congruent to mood Thought Process: linear Thought Content: denies SI/HI's and AVH's Motor Activity: sitting up in bed Cognition: A/O x3 Insight: appropriate Judgment: appropriate Assessment and Plan Impression: Hx of PTSD and MDD. Substance Use DO. Overdose on GHB. Today the patient is calm and cooperative during the assessment. Unintentional overdose. The patient is no threat to self. I. This screening and assessment is based on information collected from the following sources: II. SUICIDE RISK SCREENING (within last 30 days): A.) Suicidal thoughts/behaviors: No SUICIDE RISK ASSESSMENT III. FACTORS THAT INCREASE RISK: A.) Demographic and Substance Use Factors: Yes (GHB) B.) Current/Recent Factors (within past 3 months): Psychosocial/Environmental Factors: None Physical Illness: None Cognitive/Psychological Factors: None C.) Historical Factors: None D.) Diagnostic/Symptom/Treatment Factors: None E.) Acute Risk Factor Severity (DESC; MILD/MOD/SEVERE): Mild Other factors for this individual that increase risk: None IV. FACTORS THAT DECREASE RISK: Resilience/Protective Factors: Patient want to stop using GHB Other factors for this individual that decrease risk: Patient denies a desire to harm self V. Clinician's Formulation of Risk and Determination of level of Care: This is a 27-year-old male who unintentional overdosed on GHB. The patient was recently released from senior care and decided to get "high" with friends by using GHB. He stated his initial intake of GHB did not give him the "high" he was looking for, so he decided to take more. He stated that it was a bad choice to take GHB "period." He stated that he will follow-up with rehab services once discharged. Since being hospitalized the patient has consistently denied the desire to harm himself. Additionally, he has become insightful about how to better address recreational drug use. The patient is not impaired by substance. He is able to take care of his ADLs and is not at imminent risk of harm to self or others. Consequently, it is the opinion of the treatment team that the patient is at low risk of suicide and does not meet criteria to continue an involuntary psychiatric hold. Estimation of Imminent Risk: Low due to the above explanation. Determination of Level of Care based on Suicide Risk: Outpatient follow-up. Narrative description of clinical reasoning. (This must be completed on all patients): . Plan and Interventions based on Suicide Risk: This patient will likely be stepped down to an outpatient mental health center in the community upon discharge and follow-up within 7 days of his discharge from the hospital. VII. Discharge/After Hours Support Plan: Patient can return back to the ER, call 911 or crisis line if symptoms of depression, anxiety, suicidality return. Recommendation/Plan: Rescind 1013. Continue Remeron 15 mg PO for depression/ sleep consolidation. Discussed possible suicidality/medication induced raul with patient reference Remeron. Discussed the importance to abstain from recreational drug use. The patient given outpatient rehab services for [facility].
== END 2017-11-20 14:25 | disposition home or self-care (01) | DRG 917 ==
LOC: ED 18:51 → CC1 22:04 → 4A 23:28
PROVIDERS: ADMIT Internal Medicine; ATTEND Hospitalist
PROC: 5A1935Z Respiratory Ventilation, Less than 24 Consecutive Hours (ICD-10-PCS; principal; 2017-11-16)
PROC: 0BH17EZ Insertion of Endotracheal Airway into Trachea, Via Natural or Artificial Opening (ICD-10-PCS; 2017-11-16)
PROC: 4A033R1 Measurement of Arterial Saturation, Peripheral, Percutaneous Approach (ICD-10-PCS; 2017-11-17)
DX: T42.4X1A Poisoning by benzodiazepines, accidental (unintentional), initial encounter (principal); G92 Toxic encephalopathy; J96.01 Acute respiratory failure with hypoxia; F43.10 Post-traumatic stress disorder, unspecified; F41.9 Anxiety disorder, unspecified; F32.9 Major depressive disorder, single episode, unspecified; Y92.89 Other specified places as the place of occurrence of the external cause
CPT/HCPCS: 36415; 36600; 70450; 71045; 72125; 80048; 80053; 80307; 80320; 81001; 82550; 82803; 82962; 84443; 85025; 87070; 87205; 93005; 93010; 96374; 96375; G0480; J0461; J2250; J2704; J7030